=== PATIENT | male | born 1955 | race Caucasian/White ===

== ENCOUNTER 2020-05-26 04:26 | Emergency (ER) | payer OTHER ==
[~2020-05-26] VITALS: Ht 170.2 cm; Wt 68.0 kg
--- OUTSIDE RECORDS SUMMARY | ~2020-05-26 | XMS | Encounter Summary ---
Demographics + + + | Address | [address] [place] [address] | | | [place] [address] | + + + | Home Phone | | + + + | Preferred Language | Unknown | + + + | Marital Status | Single | + + + | Yazdanism Affiliation | Unknown | + + + | Race | White | + + + | Ethnic Group | Not or | + + + Author + + + | Author | [facility] | | | and [place] | + + + | Organization | [facility] | | | and [place] | + + + | Address | Unknown | + + + | Phone | Unavailable | + + + Care Team Providers + +------+ + | Care Interventional Physician Name | Role | Phone | + +------+ + | Lara Pereira | PCP | | + +------+ + Reason for Visit + +--------+ + | Reason | Onset | Comments | | | Date | | + +--------+ + | Appointment Question | 11/19/ | | | | 2019 | | + +--------+ + Encounter Details +--------+ + + + + | Date | Type | Department | Care Team | Description | +--------+ + + + + | 11/19/ | Telephone | [facility] [place] | Omar Ascencio | Appointment Question | | 2019 | | CARDIOLOGY [address] | MD Iván [address] | | | | | [place], | [address] [place] | | | | | [place] [address] | [place] [address] | | | | | [phone] | [phone] | | | | | | | | +--------+ + + + + Social History + +-------+ +--------+------+ | Tobacco Use | Types | Packs/Day | Years | Date | | | | | Used | | + +-------+ +--------+------+ | Former Smoker | | | | | + +-------+ +--------+------+ + + + | Sex Assigned at | Date Recorded | | | | + + + | Not on file | | + + + documented as of this encounter Miscellaneous Notes Telephone Encounter - Amita Valdes RN - 12/28/2019 12:44 PM PDTSpoke with patient and he reports he has a [employer] Pacemaker which was placed by the [facility]. Requested records from [facility] and [facility]. Electronically signed by: Amita Valdes RN 12/28/2019 12:45 PM elephone Encounter - Juana Mcclellan [place] - 11/20/2019 9:16 AM PDTCalled patient to ask questions reg arding previous cardiology care. There is a question of whether patient has a pacemaker, he would need to be scheduled for a device check. Also, unsure of where he previously had cardi ac care. Left VM for callback. Patient scheduled 12/04/2019. Electronically signed by Angella Feliz Assistant at 0 11/20/2019 9:18 AM PDTdocumented in this encounter Plan of Treatment +--------+---------+ + + + | Date | Type | Specialty | Care Team | Description | +--------+---------+ + + + | 07/03/ | Office | Cardiology | Omar Ascencio | | | 2019 | Visit | | MD Iván [address] | | | | | | [place] [address] | | | | | | [place] [address] | | | | | | [phone] | | | | | | | | +--------+---------+ + + + documented as of this encounter Visit Diagnoses + + | Diagnosis | + + | Pacemaker reprogramming/check Fitting and adjustment of cardiac pacemaker | + + | Pacemaker, Dual Chamber, [facility] [employer], 12/12/2009 [facility] Cardiac pacemaker in situ | + + documented in this encounter"
--- OUTSIDE RECORDS SUMMARY | ~2020-05-26 | XMS | Clinical Summary ---
Demographics + + + | Address | [address] [place] [address] | | | [place] [address] | + + + | Home Phone | | + + + | Preferred Language | Unknown | + + + | Marital Status | Single | + + + | Sikhism Affiliation | Unknown | + + + | Race | White | + + + | Ethnic Group | Not or | + + + Author + + + | Author | [facility] | | | and [place] | + + + | Organization | [facility] | | | and [place] | + + + | Address | Unknown | + + + | Phone | Unavailable | + + + Care Team Providers + +------+ + | Care Smoke Tester Name | Role | Phone | + +------+ + | Lara Pereira | PCP | | + +------+ + Allergies + + + + + + | Active Allergy | Reactions | Severity | Noted | Comments | | | | | Date | | + + + + + + | Acetaminophen | Other (See Comments) | | 11/20/19 | Clarify with | | | | | 20 | patient. | + + + + + + | Atenolol | Other (See Comments) | | 11/20/19 | Numbness | | | | | 20 | | + + + + + + Medications Not on file Active Problems + + + | Problem | Noted Date | + + + | Pacemaker reprogramming/check | 12/28/2019 | + + + | Pacemaker, Dual Chamber, [facility], 12/12/2009 [facility] | 12/28/2019 | + + + + + | Overview: Indication: | + + + + + | Sick sinus syndrome (HCC) with symptomatic sinus pauses | 12/28/2019 | + + + + + | Overview: S/P Permanent Pacemaker Placement 12/12/2009 by | | Mundo Verde MD [facility] | + + +--------+ + | Murmur | 11/20/2019 | +--------+ + + + | Overview: Echocardiogram September 2017 shows there is mild | | aortic stenosis. There is mild mitral regurgitation. The left | | ventricle chamber is normal in size. There is mild left | | ventricular hypertrophy. Left ventricular systolic function is | | moderately reduced. The ejection fraction estimate is 35%. The | | right ventricle is normal in size and function. LV chamber size | | is a bit smaller that on previous echocardiogram. Echocardiogram | | September 2018 shows the left ventricle is mildly dilated, mild | | concentric hypertrophy and severely impaired systolic function EF | | 20-25%. The right ventricle is mildly enlarged with impaired | | systolic function. Moderate to severe aortic stenosis with | | peak/mean pressure gradient of 22.57mmHg / 13.78mmHg, the aortic | | valve area by continuity equation is 1.1cm . There is no | | pericardial effusion.Echocardiogram June 2019 shows the left | | ventricle chamber size and wall thickness are normal. The | | ejection fraction estimate is 40 +/- 5%. The right ventricle is | | normal size. Right ventricular systolic function is at the lowere | | limits of normal or mildly reduced. There is moderate aortic | | stenosis. | + + + + + | Unspecified atrial fibrillation | 11/20/2019 | + + + | Fibromyalgia | | + + + | Heart failure | | + + + Social History + +-------+ [...] on file | | + + + Last Filed Vital Signs Not on file Plan of Treatment +--------+---------+ + + + | Date | Type | Specialty | Care Team | Description | +--------+---------+ + + + | 07/03/ | Office | Cardiology | Omar Ascencio | | | 2019 | Visit | | MD Iván [address] | | | | | | [place] | | | | | | [place] [address] | | | | | | [phone] | | | | | | | | +--------+---------+ + + + + + + + + | Health Maintenance | Due Date | Last | Comments | | | | Done | | + + + + + | Hepatitis C | | | | | Screening | 3 | | | + + + + + | Colorectal Cancer | | | | | Screening | 3 | | | | (Colonoscopy) | | | | + + + + + | Vaccine: Zoster (1 | | | | | of 2) | 9 | | | + + + + + | AAA Screening | | | | | | 8 | | | + + + + + | Vaccine: | | | | | Pneumococcal 65+ (1 | 8 | | | | of 1 - PPSV23) | | | | + + + + + | Adult Annual | | | | | Wellness Visit | 0 | | | + + + + + | Vaccine: Influenza | | 09/25/19 | | | (#1) | 0 | 19, | | | | | 06/17/20 | | | | | 17, | | | | | 12/23/19 | | | | | 17, | | | | | Addition | | | | | al | | | | | history | | | | | exists | | + + + + + | Vaccine: | | 10/28/19 | | | Dtap/Tdap/Td (2 - | 3 | 13, | | | Tdap) | | 10/28/19 | | | | | 13 | | + + + + + Implants + +--------+------+ +--------+--------+--------+ | Implanted | Type | Area | Manufacture | Device | Shelf | Model | | | | | r | | Expira | / | | | | | | Identi | tion | Serial | | | | | | fier | Date | / Lot | + +--------+------+ +--------+--------+--------+ | Ra Lead-12/12/2009Implanted: | Lead | | [employer] | | | [id number] | | Qty: 1 on 12/12/2009 by | | | MEDICAL - | | | | | Mundo Verde MD | | | STJU | | | /[id number] | | | | | | | | [id number] / | + +--------+------+ +--------+--------+--------+ | Rv Lead-12/12/2009Implanted: | Lead | | [employer] | | | [id number] | | Qty: 1 on 12/12/2009 by | | | MEDICAL - | | | TC | | Mundo Verde MD | | | STJU | | | /[id number] | | | | | | | | [id number] / | + +--------+------+ +--------+--------+--------+ | Pacemaker,Dual | Pacema | | [employer] | | | ACCENT | | Chamber-12/12/2009Implanted: | ker | | MEDICAL - | | | DR | | Qty: 1 on 12/12/2009 by | | | STJU | | | [id number] | | Mundo Verde MD | | | | | | /[id number] | | | | | | | | 09 / | + +--------+------+ +--------+--------+--------+ Results Not on filefrom Last 3 Months Insurance + +--------+ +--------+-------+---------+--------+ | Payer | Benefi | Subscriber | Effect | Phone | Address | Type | | | t Plan | ID | denilson | | | | | | / | | Dates | | | | | | Group | | | | | | + +--------+ +--------+-------+---------+--------+ | [employer] [place] | [id number] | 09/03/19 | | | Indemn | | | COMMUN | | 20-Pre | | | ity | | | ITY | | sent | | | | | | CARE | | | | | | + +--------+ +--------+-------+---------+--------+ + +--------+ +--------+ + + | Guarantor Name | Accoun | Relation to | Date | Phone | Billing Address | | | t Type | Patient | of | | | | | | | | | | + +--------+ +--------+ + + | [address] | Person | Self | [birth year] | [address] | | | al/Fam | | 1955 | [phone] | [address] [place] | | | [place] | | | 0 (Home) | [phone] | + +--------+ +--------+ + + Advance Directives + + + + + | Type | Date Recorded | Patient | Explanation | | | | Csw | | + + + + + | Power of | | | | | Ordering Box Operator | | | | + + + + + | Advance | | | | | Directive | | | | + + + + +"
--- OUTSIDE RECORDS SUMMARY | ~2020-05-26 | XMS | Encounter Summary ---
Demographics + + + | Address | [address] [place] [address] | | | [place] [address] | + + + | Home Phone | | + + + | Preferred Language | Unknown | + + + | Marital Status | Single | + + + | Christian Affiliation | Unknown | + + + | Race | White | + + + | Ethnic Group | Not or | + + + Author + + + | Author | [facility] | | | and [place] | + + + | Organization | [facility] | | | and [place] | + + + | Address | Unknown | + + + | Phone | Unavailable | + + + Care Team Providers + +------+ + | Care Smoking Pipe Mounter Name | Role | Phone | + +------+ + PCP | Unavailable | + +------+ + Encounter Details +--------+ + + + + | Date | Type | Department | Care Team | Description | +--------+ + + + + | 10/18/ | Orders Only | [facility] | Harjeet Burris | | | 2019 | | CONVERSION [address] | MD Dianne Pickard | | | | | [address] | [place] | | | | | [place] | [place] [address] | | | | | [address] | [phone] | | | | | [phone] | | | +--------+ + + + + Social History + +-------+ +--------+------+ | Tobacco Use | Types | Packs/Day | Years | Date | | | | | Used | | + +-------+ +--------+------+ | Never Assessed | | | | | + +-------+ +--------+------+ + + + | Sex Assigned at | Date Recorded | | | | + + + | Not on file | | + + + documented as of this encounter Plan of Treatment +--------+---------+ + + + | Date | Type | Specialty | Care Team | Description | +--------+---------+ + + + | 07/03/ | Office | Cardiology | Omar Ascencio | | | 2019 | Visit | | MD Iván [address] | | | | | | [address] | | | | | | [place] [address] | | | | | | [phone] | | | | | | | | +--------+---------+ + + + documented as of this encounter Procedures + +--------+ + + + | Procedure Name | Priori | Date/Time | Associated Diagnosis | Comments | | | ty | | | | + +--------+ + + + | ECHO INTERPRETATION | Routin | 10/18/2018 | | Results for this | | OF OUTSIDE FILMS | e | 5:21 PM | | procedure are in the | | | | PST | | results section. | + +--------+ + + + documented in this encounter Results ECHO Interpretation of Outside Films (10/18/2018 5:21 PM PST) + + | Specimen | + + | | + + + + + | Impressions | Performed At | + + + | 1. The left ventricle is mildly dilated, mild concentric hypertrophy | | | and severely impaired systolic function EF 20-25%. 2. The right | | | ventricle is mildly enlarged with impaired systolic function. 3. | | | Moderate to severe aortic stenosis with peak/mean pressure gradient of | | | 22.57mmHg / 13.78mmHg, the aortic valve area by continuity equation | | | is 1.1cm . 4. There is no pericardial effusion. | | + + + + + + | Narrative | Performed At | + + + | Patient Name: Jude Lane Date of : 1955 | | | Performing Physician: Stiven Ruvalcaba | | | | | | INDICATIONS MURMUR CONCLUSIONS 1. The | | | left ventricle is mildly dilated, mild concentric hypertrophy and | | | severely impaired systolic function EF 20-25%. 2. The right ventricle | | | is mildly enlarged with impaired systolic function. 3. Moderate to | | | severe aortic stenosis with peak/mean pressure gradient of 22.57mmHg / | | | 13.78mmHg, the aortic valve area by continuity equation is | | | 1.1cm . 4. There is no pericardial effusion. FINDINGS | | | -------- ECG rhythm: Sinus rhythm. Study: A 2-dimensional | | | transthoracic echocardiogram with m-mode, spectral and color flow | | | Doppler was perfomed. Study: This was a technically adequate study. | | | Left Ventricle: Overall left ventricular systolic function is severely | | | impaired with, an EF between 20 - 25 %. Left Ventricle: The left | | | ventricle is mildly dilated. Left Ventricle: There is mild concentric | | | left ventricular hypertrophy. Left Ventricle: Pseudonormal LV | | | diastolic filling pattern, consistent with elevated LA pressure and | | | moderate dysfunction (Grade II). Right Ventricle: The right ventricle | | | is mildly enlarged measuring between 3.4 - 3.7 cm. Right Ventricle: | | | The right ventricular systolic function is moderately impaired. Right | | | Ventricle: Pacer/ICD wire seen. Left Atrium: The left atrium is | | | moderately enlarged. Right Atrium: The right atrium is mildly | | | enlarged. Right Atrium: Pacemaker wire seen in the right atrial | | | cavity. Aortic Valve: The aortic valve is moderately calcified. | | | Aortic Valve: There is no evidence of aortic regurgitation. Aortic | | | Valve: Moderate to severe aortic stenosis with peak/mean pressure | | | gradient of 22.57mmHg / 13.78mmHg, the aortic valve area by continuity | | | equation is 1.1cm . Aortic Valve: The aortic valve is | | | trileaflet. Aortic Valve: Aortic valve is moderately thickened. | | | Mitral Valve: Normal appearing mitral valve. Mitral Valve: Mild | | | mitral regurgitation is present. Tricuspid Valve: The tricuspid valve | | | appears structurally normal. Tricuspid Valve: Mild tricuspid | | | regurgitation present. Tricuspid Valve: There is no evidence of | | | pulmonary hypertension. Tricuspid Valve: The right ventricular | | | systolic pressure (pulmonary artery systolic pressure), as measured by | | | Doppler, is 62.20mmHg. Pulmonic Valve: Pulmonic valve appears | | | structurally normal. Pulmonic Valve: Trace pulmonic regurgitation. | | | Pericardium: There is no pericardial effusion. Pericardium: No | | | pleural effusion seen. IVC/Hepatic Veins: The inferior vena cava is | | | normal in size and collapses > 50 % with sniff, indicating normal | | | central venous pressures. Aorta: The aortic root, ascending aorta and | | | aortic arch are normal in size. MEASUREMENTS Ao | | | sinus: 3.[address] junct: 2.93 cm IVC: 1.69 cm LA Diam: | | | 4.45 cm EDV(Teich): 192.47 ml IVSd: 1.13 cm LVIDd: 6.17 | | | cm LVPWd: 1.21 cm LVOT Area: 3.20 cm2 LVOT Diam: 2.02 cm | | | %FS: 15.28 % EF(Teich): 31.68 % ESV(Teich): 131.47 ml | | | LVIDs: 5.23 cm SV(Teich): 60.99 ml RVIDd: 3.09 cm LVEF MOD | | | A2C: 26.83 % SV MOD A2C: 64.59 ml LVEF MOD A4C: 27.85 % | | | SV MOD A4C: 49.90 ml EF Biplane: 27.52 % LVEDV MOD BP: | | | 208.83 ml LVESV MOD BP: 151.34 ml LVEDV MOD A2C: 240.68 ml | | | LVLd A2C: 9.96 cm LVEDV MOD A4C: 179.13 ml LVLd A4C: 10.13 | | | cm LVESV MOD A2C: 176.08 ml LVLs A2C: 9.14 cm LVESV MOD A4C: | | | 129.23 ml LVLs A4C: 9.00 cm LAESV(A-L): 102.94 ml LAESV | | | Index (A-L): 52.52 ml/m2 LAAs A2C: 26.69 cm2 LAESV A-L A2C: | | | 99.77 ml LALs A2C: 6.06 cm LAAs A4C: 27.03 cm2 LAESV A-L | | | A4C: 104.24 ml LALs A4C: 5.94 cm RAAs: 21.85 cm2 RAESV | | | A-L: 81.04 ml RAESV MOD: 79.12 ml RALs: 5.00 cm TAPSE: | | | 1.60 cm AV maxP.56 mmHg AV meanP.77 mmHg AV Vmax: | | | 2.37 m/s AV Vmean: 1.78 m/s AV VTI: 46.67 cm ROSAURA Vmax: | | | 1.05 cm2 ROSAURA (VTI): 1.14 cm2 AVAI Vmax: 0.00 cm2/m2 AVAI | | | (VTI): 0.00 cm2/m2 LVOT maxP.43 mmHg LVOT meanP.35 | | | mmHg LVSI Dopp: 27.30 ml/m2 LVSV Dopp: 53.51 ml LVOT Vmax: | | | 0.78 m/s LVOT Vmean: 0.55 m/s LVOT VTI: 16.68 cm MV A Ayo: | | | 0.38 m/s MV Dec Hale: 4.09 m/s2 MV DecT: 170.49 ms MV E | | | Ayo: 0.69 m/s MV E/A Ratio: 1.80 MV PHT: 49.44 ms MVA By | | | PHT: 4.44 cm2 Septal e': 0.02 m/s Septal E/e': 23.37 | | | Lateral e': 0.09 m/s Lateral E/e': 7.21 RAP: 5 mmHg RVSP: | | | 62.19 mmHg TR maxP.19 mmHg TR Vmax: 3.78 m/s RV s': | | | 0.06 m/s Consulting Hr Professional: SCOUT Authenticated by: Stiven Ruvalcaba | | | Report Date/Time: 10-18-2018 19:30:54 | | + + + + + | Procedure Note | + + | Dylan Diaz - 04/19/2019 2:01 PM PDT Patient Name: Javier Lane of | | : 1955 Performing Physician: Stiven | | Peg INDICATIONS------ | | -----MURMUR CONCLUSIONS 1. The left ventricle is mildly dilated, mild | | concentric hypertrophy and severely impaired systolic function EF 20-25%.2. The right | | ventricle is mildly enlarged with impaired systolic function.3. Moderate to severe | | aortic stenosis with peak/mean pressure gradient of 22.57mmHg / 13.78mmHg, the aortic | | valve area by continuity equation is 1.1cm .4. There is no pericardial effusion. | | FINDINGS--------ECG rhythm: Sinus rhythm.Study: A 2-dimensional transthoracic | | echocardiogram with m-mode, spectral and color flow Doppler was perfomed.Study: This was | | a technically adequate study.Left Ventricle: Overall left ventricular systolic function | | is severely impaired with, an EF between 20 - 25 %.Left Ventricle: The left ventricle | | is mildly dilated.Left Ventricle: There is mild concentric left ventricular | | hypertrophy.Left Ventricle: Pseudonormal LV diastolic filling pattern, consistent with | | elevated LA pressure and moderate dysfunction (Grade II).Right Ventricle: The right | | ventricle is mildly enlarged measuring between 3.4 - 3.7 cm.Right Ventricle: The right | | ventricular systolic function is moderately impaired.Right Ventricle: Pacer/ICD wire | | seen.Left Atrium: The left atrium is moderately enlarged.Right Atrium: The right atrium | | is mildly enlarged.Right Atrium: Pacemaker wire seen in the right atrial cavity.Aortic | | Valve: The aortic valve is moderately calcified.Aortic Valve: There is no evidence of | | aortic regurgitation.Aortic Valve: Moderate to severe aortic stenosis with peak/mean | | pressure gradient of 22.57mmHg / 13.78mmHg, the aortic valve area by continuity equation | | is 1.1cm .Aortic Valve: The aortic valve is trileaflet.Aortic Valve: Aortic valve | | is moderately thickened.Mitral Valve: Normal appearing mitral valve.Mitral Valve: Mild | | mitral regurgitation is present.Tricuspid Valve: The tricuspid valve appears | | structurally normal.Tricuspid Valve: Mild tricuspid regurgitation present.Tricuspid | | Valve: There is no evidence of pulmonary hypertension.Tricuspid Valve: The right | | ventricular systolic pressure (pulmonary artery systolic pressure), as measured by | | Doppler, is 62.20mmHg.Pulmonic Valve: Pulmonic valve appears structurally | | normal.Pulmonic Valve: Trace pulmonic regurgitation.Pericardium: There is no | | pericardial effusion.Pericardium: No pleural effusion seen.IVC/Hepatic Veins: The | | inferior vena cava is normal in size and collapses > 50 % with sniff, indicating normal | | central venous pressures.Aorta: The aortic root, ascending aorta and aortic arch are | | normal in size. MEASUREMENTS Ao sinus: 3.[address] junct: 2.93 cmIVC: | | 1.69 cmLA Diam: 4.45 cmEDV(Teich): 192.47 mlIVSd: 1.13 cmLVIDd: 6.17 cmLVPWd: | | 1.21 cmLVOT Area: 3.20 mo3VPDP Diam: 2.02 cm%FS: 15.28 %EF(Teich): 31.68 | | %ESV(Teich): 131.47 mlLVIDs: 5.23 cmSV(Teich): 60.99 mlRVIDd: 3.09 cmLVEF MOD | | A2C: 26.83 %SV MOD A2C: 64.59 mlLVEF MOD A4C: 27.85 %SV MOD A4C: 49.90 mlEF | | Biplane: 27.52 %LVEDV MOD BP: 208.83 mlLVESV MOD BP: 151.34 mlLVEDV MOD A2C: | | 240.68 mlLVLd A2C: 9.96 cmLVEDV MOD A4C: 179.13 mlLVLd A4C: 10.13 cmLVESV MOD A2C: | | 176.08 mlLVLs A2C: 9.14 cmLVESV MOD A4C: 129.23 mlLVLs A4C: 9.00 cmLAESV(A-L): | | 102.94 mlLAESV Index (A-L): 52.52 ml/m2LAAs A2C: 26.69 [id number] A-L A2C: 99.77 | | mlLALs A2C: 6.06 cmLAAs A4C: 27.03 [id number] A-L A4C: 104.24 mlLALs A4C: 5.94 | | cmRAAs: 21.85 [id number] A-L: 81.04 mlRAESV MOD: 79.12 mlRALs: 5.00 cmTAPSE: | | 1.60 cmAV maxP.56 mmHgAV meanP.77 mmHgAV Vmax: 2.37 m/Neetu Vmean: 1.78 | | m/Neetu VTI: 46.67 cmAVA Vmax: 1.05 cm2AVA (VTI): 1.14 [id number] Vmax: 0.00 | | cm2/m2AVAI (VTI): 0.00 cm2/m2LVOT maxP.43 mmHgLVOT meanP.35 mmHgLVSI Dopp: | | 27.30 ml/m2LVSV Dopp: 53.51 mlLVOT Vmax: 0.78 m/sLVOT Vmean: 0.55 m/sLVOT VTI: | | 16.68 cmMV A Ayo: 0.38 m/sMV Dec Hale: 4.09 m/s2MV DecT: 170.49 msMV E Ayo: | | 0.69 m/sMV E/A Ratio: 1.80MV PHT: 49.44 msMVA By PHT: 4.44 wi2Xztuzu e': 0.02 | | m/sSeptal E/e': 23.37Lateral e': 0.09 m/sLateral E/e': 7.21RAP: 5 mmHgRVSP: | | 62.19 mmHgTR maxP.19 mmHgTR Vmax: 3.78 m/sRV s': 0.06 m/s Consulting Hr Professional: | | DBSAuthenticated by: Stiven [facility] Date/Time: 10-18-2018 19:30:54 IMPRESSION: 1. | | The left ventricle is mildly dilated, mild concentric hypertrophy and severely impaired | | systolic function EF 20-25%.2. The right ventricle is mildly enlarged with impaired | | systolic function.3. Moderate to severe aortic stenosis with peak/mean pressure gradient | | of 22.57mmHg / 13.78mmHg, the aortic valve area by continuity equation is | | 1.1cm .4. There is no pericardial effusion. | |EDV(Teich): 192.47 ml | |IVSd: 1.13 cm | |LVIDd: 6.17 cm | |LVPWd: 1.21 cm | |LVOT Area: 3.20 cm2 | |LVOT Diam: 2.02 cm | |%FS: 15.28 % | |EF(Teich): 31.68 % | |ESV(Teich): 131.47 ml | |LVIDs: 5.23 cm | |SV(Teich): 60.99 ml | |RVIDd: 3.09 cm | |LVEF MOD A2C: 26.83 % | |SV MOD A2C: 64.59 ml | |LVEF MOD A4C: 27.85 % | |SV MOD A4C: 49.90 ml | |EF Biplane: 27.52 % | |LVEDV MOD BP: 208.83 ml | |LVESV MOD BP: 151.34 ml | |LVEDV MOD A2C: 240.68 ml | |LVLd A2C: 9.96 cm | |LVEDV MOD A4C: 179.13 ml | |LVLd A4C: 10.13 cm | |LVESV MOD A2C: 176.08 ml | |LVLs A2C: 9.14 cm | |LVESV MOD A4C: 129.23 ml | |LVLs A4C: 9.00 cm | |LAESV(A-L): 102.94 ml | |LAESV Index (A-L): 52.52 ml/m2 | |LAAs A2C: 26.69 cm2 | |LAESV A-L A2C: 99.77 ml | |LALs A2C: 6.06 cm | |LAAs A4C: 27.03 cm2 | |LAESV A-L A4C: 104.24 ml | |LALs A4C: 5.94 cm | |RAAs: 21.85 cm2 | |RAESV A-L: 81.04 ml | |RAESV MOD: 79.12 ml | |RALs: 5.00 cm | |TAPSE: 1.60 cm | |AV maxP.56 mmHg | |AV meanP.77 mmHg | |AV Vmax: 2.37 m/s | |AV Vmean: 1.78 m/s | |AV VTI: 46.67 cm | |ROSAURA Vmax: 1.05 cm2 | |ROSAURA (VTI): 1.14 cm2 | |AVAI Vmax: 0.00 cm2/m2 | |AVAI (VTI): 0.00 cm2/m2 | |LVOT maxP.43 mmHg | |LVOT meanP.35 mmHg | |LVSI Dopp: 27.30 ml/m2 | |LVSV Dopp: 53.51 ml | |LVOT Vmax: 0.78 m/s | |LVOT Vmean: 0.55 m/s | |LVOT VTI: 16.68 cm | |MV A Ayo: 0.38 m/s | |MV Dec Hale: 4.09 m/s2 | |MV DecT: 170.49 ms | |MV E Ayo: 0.69 m/s | |MV E/A Ratio: 1.80 | |MV PHT: 49.44 ms | |MVA By PHT: 4.44 cm2 | |Septal e': 0.02 m/s | |Septal E/e': 23.37 | |Lateral e': 0.09 m/s | |Lateral E/e': 7.21 | |RAP: 5 mmHg | |RVSP: 62.19 mmHg | |TR maxP.19 mmHg | |TR Vmax: 3.78 m/s | |RV s': 0.06 m/s | | | |Consulting Hr Professional: DBS | |Authenticated by: Stiven Cross | |Report Date/Time: 10-18-2018 19:30:54 | | | |IMPRESSION: | |1. The left ventricle is mildly dilated, mild concentric hypertrophy and severely impaired systolic function EF 20-25%. | |2. The right ventricle is mildly enlarged with impaired systolic function. | |3. Moderate to severe aortic stenosis with peak/mean pressure gradient of 22.57mmHg / 13.78 mmHg, the aortic valve area by continuity equation is 1.1cm . | |4. There is no pericardial effusion. | + + documented in this encounter Visit Diagnoses Not on filedocumented in this encounter"
--- OUTSIDE RECORDS SUMMARY | ~2020-05-26 | XMS | Encounter Summary ---
Demographics + + + | Address | [address] [place] [address] | | | [place] [address] | + + + | Home Phone | | + + + | Preferred Language | Unknown | + + + | Marital Status | Single | + + + | Gnosticism Affiliation | Unknown | + + + | Race | White | + + + | Ethnic Group | Not or | + + + Author + + + | Author | [facility] | | | and [place] | + + + | Organization | [facility] | | | and [place] | + + + | Address | Unknown | + + + | Phone | Unavailable | + + + Care Team Providers + +------+ + | Care Life Skills Educator Name | Role | Phone | + +------+ + | Malia Blakely MD | PCP | | + +------+ + Encounter Details +--------+ + + + + | Date | Type | Department | Care Team | Description | +--------+ + + + + | 11/27/ | Abstract | [facility] | Omar Ascencio | | | 2020 | | [facility] [address] | MD Iván [address] | | | | [address], | [address] [place] | | | | | [place] [address] | [place] [address] | | | | | [phone] | [phone] | | | | | | | [...] | | | | | [place] [address] | | | | | | [phone] | | | | | | | | +--------+---------+ + + + documented as of this encounter Procedures + +--------+ + + + | Procedure Name | Priori | Date/Time | Associated Diagnosis | Comments | | | ty | | | | + +--------+ + + + | EXTERNAL LAB: | Routin | 09/25/2018 | | Results for this | | ALBUMIN | e | | | procedure are in the | | | | | | results section. | + +--------+ + + + | EXTERNAL LAB: | Routin | 09/25/2018 | | Results for this | | PROTEIN, TOTAL | e | | | procedure are in the | | | | | | results section. | + +--------+ + + + | EXTERNAL LAB: CBC | Routin | 09/25/2018 | | Results for this | | | e | | | procedure are in the | | | | | | results section. | + +--------+ + + + | EXTERNAL LAB: CBC | Routin | 09/25/2018 | | Results for this | | | e | | | procedure are in the | | | | | | results section. | + +--------+ + + + | EXTERNAL LAB: | Routin | 09/25/2018 | | Results for this | | PROTIME INR | e | | | procedure are in the | | | | | | results section. | + +--------+ + + + | CBC WITH | Routin | 09/25/2018 | | Results for this | | DIFFERENTIAL | e | | | procedure are in the | | | | | | results section. | + +--------+ + + + documented in this encounter Results CBC with Differential (09/25/2018) + + + + + + | Component | Value | Ref Range | Performed | Pathologist | | | | | At | Signature | + + + + + + | MCH | 28.0 | 27.0 - 31.0 pg | | | + + + + + + | MCHC | 31.0 (A) | 32.0 - 36.0 | | | | | | g/dL | | | + + + + + + | % Basophils | 0.2 | 0.0 - 2.0 % | | | + + + + + + + + | Specimen | + + | Blood | + + External Lab: CBC (09/25/2018) + + + + + + | Component | Value | Ref Range | Performed | Pathologist | | | | | At | Signature | + + + + + + | PLT, | 204 | 150 - 400 | | | | External | | | | | + + + + + + | Neutrophils | 75.0 (A) | 44 - 74 | | | | %, | | | | | | External | | | | | + + + + + + | Lymphocytes | 16.2 | 15 - 42 | | | | %, | | | | | | External | | | | | + + + + + + | Monocytes | 7.7 | 4 - 13 | | | | %, External | | | | | + + + + + + | Eosinophils | 0.7 | 0 - 7 | | | | %, | | | | | | External | | | | | + + + + + + | Neutrophils | 6.2 | 1.2 - 7 | | | | , Absolute, | | | | | | External | | | | | + + + + + + | Lymphocytes | 1.4 | 0.6 - 3.4 | | | | , Absolute, | | | | | | External | | | | | + + + + + + | Monocytes, | 0.6 | 0.2 - 1 | | | | Absolute, | | | | | | External | | | | | + + + + + + | Eosinophils | 0.1 | 0 - 0.5 | | | | , Absolute | | | | | + + + + + + | Basophils, | 0.0 | 0 - 0.2 | | | | Absolute | | | | | + + + + + + External Lab: [facility] INR (09/25/2018) + + + + + + | Component | Value | Ref Range | Performed | Pathologist | | | | | At | Signature | + + + + + + | INR, | 1.3 (A) | 2 - 3 | | | | External | | | | | + + + + + + | PT, | 16.5 (A) | 12.3 - 14.7 | | | | External | | | | | + + + + + + + + | Specimen | + + | Blood | + + External Lab: Albumin (09/25/2018) + +-------+ + + + | Component | Value | Ref Range | Performed | Pathologist | | | | | At | Signature | + +-------+ + + + | Albumin, | 3.6 | 3.5 - 5 | | | | External | | | | | + +-------+ + + + External Lab: Protein, Total (09/25/2018) + +---------+ + + + | Component | Value | Ref Range | Performed | Pathologist | | | | | At | Signature | + +---------+ + + + | Protein, | 6.4 (A) | 6.5 - 8.2 | | | | Total, | | | | | | External | | | | | + +---------+ + + + External Lab: CBC (09/25/2018) + +-------+ + + + | Component | Value | Ref Range | Performed | Pathologist | | | | | At | Signature | + +-------+ + + + | WBC, | 8.3 | 3 - 10.6 | | | | External | | | | | + +-------+ + + + | HGB, | 14.8 | 11.8 - 17.1 | | | | External | | | | | + +-------+ + + + | HCT, | 47.8 | 36 - 51 | | | | External | | | | | + +-------+ + + + | RBC, | 5.28 | 3.86 - 5.7 | | | | External | | | | | + +-------+ + + + | MCV, | 91 | 81 - 102 | | | | External | | | | | + +-------+ + + + | RDW, | 15.7 | | | | | External | | | | | + +-------+ + + + documented in this encounter Visit Diagnoses Not on filedocumented in this encounter"
--- OUTSIDE RECORDS SUMMARY | 2020-05-26 06:38 | XMS ---
PreManage Notification: CLEMENT JUÁREZ Security Mixed Livestock Farmer Events No recent Security Events currently on file [facility] Intermediate Facility Current PHONE: [phone] NAWAF RINALDI [facility] 03/31/2020-Current PHONE: [phone] LEAH HERNANDEZ Family Medicine 07/18/2019-Current PHONE: Unknown [place] has no Care Guidelines for this patient. Care History Medical/Surgical 04/08/2020 [facility] - [facility]W CONTACTED -[place] WELCH- LEFT A MESSAGE FOR PATIENT PCP GUIDO EPPERSON. - CONCERNS FOR PATIENT CARE IN THE HOME AND REQUESTING URGENT FOLLOW UP FOR PATIENT. - CHW HAS NOT BEEN ABLE TO CONTACT PATIENT-NUMBER LISTED GOES STRAIGHT TO VOICEMAIL. 04/07/2020 [facility] - [facility] HAS LEFT 2 MESSAGES FOR PATIENT- - WHEN PATIENT WAS INPATIENT THEY OFFERED PATIENT TO GO TO A SNF -PATIENT REFUSED. - THE [facility] WILL BE CONTACTING PATIENT FOR [facility]. - PATIENT DOES NOT HAVE CAREGIVERS IN THE HOME CURRENTLY DUE TO [facility] NEEDED- CAN TAKE A FEW WEEKS TO SEE IF PATIENT IS ELIGIBLE FOR SERVICES. [facility] VISIT COUNT (12 MO.) 6 [facility] TOTAL 6 NOTE: Visits indicate total known visits. ED/UCC VISIT TRACKING (12 MO.) [facility] COMPLAINT: - ABDOMINAL PAIN 04/15/2020 17:03 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 04/05/2020 09:03 [facility] [place] TYPE: Emergency COMPLAINT: - WEAKNESS DIAGNOSES: - Type 2 diabetes mellitus with diabetic chronic kidney disease - Weakness - Allergy status to other drugs, medicaments and biological sub - Heart failure, unspecified - long-term (current) use of aspirin - long-term (current) use of insulin - Chronic kidney disease, stage 3 (moderate) - Allergy status to analgesic agent status - Other salvage determiner (current) drug therapy 03/27/2020 10:15 [facility] [place] TYPE: Emergency COMPLAINT: - WEAKNESS 08/27/2019 15:04 [facility] [place] TYPE: Emergency COMPLAINT: - WOUND VAC CHANGE DIAGNOSES: - salvage determiner (current) use of insulin - Chronic kidney disease, stage 3 (moderate) - Other usp (current) drug therapy - Encounter for change or removal of surgical wound dressing - Allergy status to analgesic agent status - Personal history of nicotine dependence - Allergy status to other drugs, medicaments and biological sub - Heart failure, unspecified - long-term (current) use of anticoagulants - Acquired absence of other specified parts of digestive tract 07/17/2019 19:32 [facility] [place] TYPE: Emergency COMPLAINT: - ABDOMINAL PAIN INPATIENT VISIT TRACKING (12 MO.) 04/16/2020 01:57 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 - Unspecified systolic (congestive) heart failure - Dyspnea, unspecified - Other skin changes - Encounter for palliative care - Presence of cardiac pacemaker - Anxiety disorder, unspecified - Other symptoms and signs involving cognitive functions and aw - long-term (current) use of insulin - Nonrheumatic aortic (valve) stenosis - Sick sinus syndrome - Mild intermittent asthma, uncomplicated - Edema, unspecified - Other specified counseling - Urinary tract infection, site not specified - Anemia, unspecified - Acute kidney failure, unspecified - Other fatigue - Other specified disorders of kidney and ureter 03/27/2020 19:19 [facility] [place] TYPE: Medical Surgical COMPLAINT: - RENAL FAILURE DIAGNOSES: - Minor contusion of right kidney, initial encounter - Narcolepsy without cataplexy - Nonrheumatic aortic (valve) stenosis - Pulmonary hypertension, unspecified - Type 2 diabetes mellitus without complications - long-term (current) use of insulin - long-term (current) use of anticoagulants - Narcolepsy without cataplexy - Klebsiella pneumoniae [K. pneumoniae] as the cause of disease - Acute on chronic systolic (congestive) heart failure - Gastro-esophageal reflux disease without esophagitis - Acute kidney failure, unspecified - Nonspecific elevation of levels of transaminase and lactic ac - Type 2 diabetes mellitus without complications - Presence of cardiac pacemaker - Minor contusion of right kidney, initial encounter - Hypertensive heart disease with heart failure - Fibromyalgia - long-term (current) use of anticoagulants - Hypertensive heart disease with heart failure - Unspecified atrial fibrillation - Nonrheumatic aortic (valve) stenosis - Acute on chronic systolic (congestive) heart failure - Pulmonary hypertension, unspecified - Klebsiella pneumoniae [K. pneumoniae] as the cause of disease - Other specified sepsis - Unspecified atrial fibrillation - Fibromyalgia - Presence of cardiac pacemaker - Nonspecific elevation of levels of transaminase and lactic ac - salvage determiner (current) use of insulin - Other specified sepsis - Gastro-esophageal reflux disease without esophagitis 07/18/2019 06:48 [facility] [place] TYPE: Medical Surgical COMPLAINT: - INCARCERATED INCISIONAL HERNIA W/BOWEL OBSTRUCTION DIAGNOSES: - Type 2 diabetes mellitus with diabetic chronic kidney disease - long-term (current) use of anticoagulants - Allergy status to analgesic agent status - Pure hypercholesterolemia, unspecified - Body mass index (BMI) 32.0-32.9, adult - Other usp (current) drug therapy - Presence of cardiac pacemaker - Chronic systolic (congestive) heart failure - Narcolepsy without cataplexy - Obesity, unspecified - Chronic kidney disease, stage 3 (moderate) - Hypertensive heart and chronic kidney disease with heart fail - Fibromyalgia - Incisional hernia with obstruction, without gangrene - Gastro-esophageal reflux disease without esophagitis - Other specified disorders of kidney and ureter - Unspecified asthma, uncomplicated - Obstructive sleep apnea (adult) (pediatric) - Allergy status to other drugs, medicaments and biological sub - salvage determiner (current) use of insulin - salvage determiner (current) use of inhaled steroids - Ischemic cardiomyopathy - Pulmonary hypertension, unspecified - Hypo-osmolality and hyponatremia [email or web address]
[2020-05-26] MEDS ORDERED: VIAGRA50 MG PO (06:46)
[2020-05-26] MEDS ORDERED: BAYER CHEWABLE81 MG PO (06:47)
[2020-05-26] MEDS ORDERED: METOPROLOL TART25 MG PO (06:47)
[2020-05-26] MEDS ORDERED: K-TAB ER20 MEQ PO (06:48)
[2020-05-26] MEDS ORDERED: VISTARIL50 MG PO (06:48)
[2020-05-26] MEDS ORDERED: LANTUS100 UNITS/ SUB-Q (06:50)
[2020-05-26] MEDS ORDERED: TRAZODONE HCL100 MG PO (06:50)
[2020-05-26] MEDS ORDERED: NOVOLOG100 UNIT/1 SUB-Q (06:51)
[2020-05-26] MEDS ORDERED: OMEPRAZOLE20 MG PO (06:52)
[2020-05-26] MEDS ORDERED: REFRESH OPTIVE10 ML OPTH (06:52)
[2020-05-26] MEDS ORDERED: VENTOLIN HFA18 GM INH (06:53)
[2020-05-26] MEDS ORDERED: LASIX80 MG PO (06:55)
[2020-05-26] MEDS ORDERED: 24 HOUR ALLERG9.9 ML INH (06:55)
[2020-05-26] MEDS ORDERED: NUPERCAINAL56.7 GM PR (06:56)
[2020-05-26] MEDS ORDERED: ONDANSETRON ODT8 MG PO (06:57)
[2020-05-26] MEDS ORDERED: SELENIUM SULFI120 M1 TOP (06:57)
[2020-05-26] MEDS ORDERED: POLYETHYLENE GLY1 GM MISC (06:58)
[2020-05-26] MEDS ORDERED: PROZAC10 MG PO (06:58)
[2020-05-26] MEDS ORDERED: ZOCOR40 MG PO (06:59)
[2020-05-26] MEDS ORDERED: VITAMIN D325 MC2 PO (06:59)
[2020-05-26] MEDS ORDERED: FEROSUL325 MG PO (07:00)
--- NOTE | 2020-05-26 11:08 | NUR ---
RESPONDED TO [facility]BIAS YOUNG IN ER. STAFF PERFORMING CPR ON PT WHEN I ARRIVED. HR WAS REESTABLISHED AND RN LENCHO KEN REQUESTED I CALL PT'S SISTER ERICA IN [place] AND UPDATE WHICH I DID. ERICA WAS ADAMANT THAT NOONE ELSE BE GIVEN ANY INFORMATION, BUT HER REGARDING PT'S CONDITION. PT IS STABILIZED, INTEBATED AND [facility] HAS TAKEN HIM TO [facility]. ERICA WAS THANKFUL FOR THE UPDATE. SHE IS EMOTIONAL, GAVE COMFORT AND HAD PRAYER WITH HER. WILL FOLLOW NEEDED
--- NOTE | 2020-05-26 13:34 | EKG ---
[facility] [address] [facility] [place] [address] Signed Atrial flutter with variable AV block with premature ventricular or aberrantly conducted complexes Left axis deviation Nonspecific intraventricular block T wave abnormality, consider lateral ischemia Abnormal ECG When compared with ECG of 26-MAY-2020 04:40, (Unconfirmed) No significant change was found Confirmed by CYNTHIA MENDES DO ([id number]) on 05/26/2020 1:34:11 PM Electronically Signed By: CYNTHIA MENDES DO 05/26/20 1334 PATIENT NAME: CLEMENT JUÁREZ Electrocardiogram DATE OF : 51 PHYSICIAN: CYNTHIA MENDES DO REPORT #: [id number] REPORT IS CONFIDENTIAL AND NOT TO BE RELEASED WITHOUT AUTHORIZATION
== END 2020-05-26 10:42 | disposition short-term general hospital (02) ==
LOC: ED 04:26 → EDBD 04:28 → ED 04:28
DX: A41.9 Sepsis, unspecified organism (principal); I35.0 Nonrheumatic aortic (valve) stenosis; N28.9 Disorder of kidney and ureter, unspecified; N15.1 Renal and perinephric abscess; R10.31 Right lower quadrant pain; R41.82 Altered mental status, unspecified; I48.20 Chronic atrial fibrillation, unspecified; I11.0 Hypertensive heart disease with heart failure; I50.9 Heart failure, unspecified; E11.9 Type 2 diabetes mellitus without complications; J44.9 Chronic obstructive pulmonary disease, unspecified; Z88.8 Allergy status to other drugs, medicaments and biological substances; Z79.899 Other long term (current) drug therapy; Z79.82 Long term (current) use of aspirin; Z79.4 Long term (current) use of insulin
CPT/HCPCS: 31500; 51702; 70450; 71045; 74176; 80053; 82140; 82803; 83605; 83690; 83880; 85025; 85610; 85730; 93005; 93010; 94002; 99291; 99292; C9803; J0171; J0282; J0692; J1170; J2550; J3010; J7040